=== PATIENT | female | born 1940 | race Caucasian/White ===

== ENCOUNTER 2018-09-11 11:55 | Inpatient (IN) | payer MEDICARE, OTHER ==
[~2018-09-11] VITALS: Ht 157.5 cm; Wt 64.9 kg
[2018-09-11 12:06] VITALS: BP 164/84
[2018-09-11] MEDS ORDERED: NEXIUM40 MG ORAL (12:06)
[2018-09-11] MEDS ORDERED: VITAMIN B122500 MCG PO (12:06)
[2018-09-11] MEDS ORDERED: ASPIR 8181 MG ORAL (12:06)
[2018-09-11] MEDS ORDERED: LIPITOR20 MG ORAL (12:06)
[2018-09-11] MEDS ORDERED: VITAMIN D1000 UNI1 ORAL (12:06)
[2018-09-11] MEDS ORDERED: LEVOTHYROXINE75 MCG ORAL (12:06)
[2018-09-11] MEDS ORDERED: cefTRIAXone 1 GM in NS 55 ML IVPB ONE (12:15)
--- NOTE | 2018-09-11 12:39 | Emergency Room Report ---
History of Present Illness General Chief Complaint: Nosebleed Source: Patient Present Illness HPI Patient presents with complaints of nasal bleeding reports that this morning she Sitting when she started feeling some trickling from the nose she feels that the blood is coming from both nares Denies any headache denies any recent trauma denies any other type of injury that with increased pressure such as sneezing or cough Patient does take an aspirin a day Denies any other recent travel denies any fevers denies any Change in medications Allergies: Coded Allergies: No Known Allergies (Unverified , 09/11/18) Patient History Past Medical History: see triage record Pertinent Family History: none Reviewed Nursing Documentation: PMH: Agreed; PSxH: Agreed Nursing Documentation-PMH Past Medical History: No History, Except For Hx Hypertension: Yes Hx Gastrointestinal Problems: Yes Review of Systems All Other Systems: negative except mentioned in HPI Physical Exam Vital Signs Date Time Temp Pulse Resp B/P (MAP) Pulse Ox O2 Delivery O2 Flow Rate FiO2 09/11/18 11:59 97.5 77 18 164/84 (110) 97 Room Air Sp02 EP Interpretation: reviewed, normal General Appearance: well appearing Head: normocephalic, atraumatic Eyes: bilateral eye PERRL, bilateral eye EOMI ENT: other - Initially appearance of anterior chamber epistaxis from the left side however after intervention the does appear to be, some pooling of blood on the right anterior nare no septal hematomas Neck: supple Respiratory: lungs clear, no respiratory distress, no retraction Cardiovascular #1: regular rate, rhythm Gastrointestinal: soft Genitourinary: no CVA tenderness Musculoskeletal: normal inspection Neurologic: alert, oriented x3 Skin: no rash Lymphatic: no adenopathy Medical Decision Making Diagnostic Impression: Primary Impression: Epistaxis ER Course Multiple differentials and consideration Including but not limited to coagulation pathology, structural pathology Patient's blood work is at baseline levels Initial 5.5 cm packing was placed bilaterally however there appeared to be continued oozing from the right nostril near therefore this was removed And a 7.5 packing was placed the balloon was inflated and appears to have controlled the bleeding much better patient had very minimal oozing noted and this was allowed to Have secondary treatment with increased pressure and placing more air through the syringe which appeared to improve the oozing of blood Patient's airway remains patent Remains hemodynamically stable Given the minimal oozing and bilateral packing ENT specialty was consulted and patient will require further inpatient care Labs Test 09/11/18 12:30 White Blood Count 7.6 K/UL (4.8-10.8) Red Blood Count 3.97 M/UL (4.20-5.40) Hemoglobin 10.9 G/DL (12.0-16.0) Hematocrit 33.0 % (37.0-47.0) Mean Corpuscular Volume 83 FL (80-99) Mean Corpuscular Hemoglobin 27.6 PG (27.0-31.0) Mean Corpuscular Hemoglobin Concent 33.2 G/DL (32.0-36.0) Red Cell Distribution Width 14.8 % (11.6-14.8) Platelet Count 216 K/UL (150-450) Mean Platelet Volume 7.4 FL (6.5-10.1) Neutrophils (%) (Auto) 59.7 % (45.0-75.0) Lymphocytes (%) (Auto) 29.0 % (20.0-45.0) Monocytes (%) (Auto) 6.2 % (1.0-10.0) Eosinophils (%) (Auto) 3.7 % (0.0-3.0) Basophils (%) (Auto) 1.4 % (0.0-2.0) Prothrombin Time 10.9 SEC (9.30-11.50) Prothromb Time International Ratio 1.0 (0.9-1.1) Activated Partial Thromboplast Time 29 SEC (23-33) Sodium Level 141 MMOL/L (136-145) Potassium Level 3.9 MMOL/L (3.5-5.1) Chloride Level 106 MMOL/L (98-107) Carbon Dioxide Level 29 MMOL/L (21-32) Anion Gap 6 mmol/L (5-15) Blood Urea Nitrogen 27 mg/dL (7-18) Creatinine 0.9 MG/DL (0.55-1.30) Estimat Glomerular Filtration Rate mL/min (>60) Glucose Level 112 MG/DL (74-106) Calcium Level 9.1 MG/DL (8.5-10.1) Last Vital Signs Date Time Temp Pulse Resp B/P (MAP) Pulse Ox O2 Delivery O2 Flow Rate FiO2 09/11/18 12:06 97.5 18 164/84 97 Room Air 09/11/18 11:59 77 Status: improved Disposition: ADMITTED INPATIENT Condition: Serious Blue Gayle DO Sep 11, 2018 12:39
--- NOTE | 2018-09-11 12:42 | NUR ---
ED Nurse Note: pt came in from home c/o nosebleed unknown cause since this morning. ermd eval done sl established blood sent to lab ivf and med up infusing.
[2018-09-11 12:43] LABS: BASOPHILS % (AUTO) 1.4 % (0.0-2.0); EOSINOPHILS % (AUTO) 3.7 % (0.0-3.0); HEMOGLOBIN 10.9 G/DL (12.0-16.0); MEAN CORPUSCULAR VOLUME 83 FL (80-99); MONOCYTES % (AUTO) 6.2 % (1.0-10.0); NEUTROPHILS % (AUTO) 59.7 % (45.0-75.0); PLATELET COUNT 216 K/UL (150-450); RED BLOOD COUNT 3.97 M/UL (4.20-5.40); RED CELL DISTRIBUTION WIDTH 14.8 % (11.6-14.8); WHITE BLOOD COUNT 7.6 K/UL (4.8-10.8)
[2018-09-11 12:57] LABS: ANION GAP 6 mmol/L (5-15); BLOOD UREA NITROGEN 27 mg/dL (7-18); CALCIUM 9.1 MG/DL (8.5-10.1); CARBON DIOXIDE 29 MMOL/L (21-32); CHLORIDE 106 MMOL/L (98-107); CREATININE 0.9 MG/DL (0.55-1.30); POTASSIUM 3.9 MMOL/L (3.5-5.1); SODIUM 141 MMOL/L (136-145)
[2018-09-11 14:10] VITALS: BP 155/76
[2018-09-11 15:08] VITALS: BP 152/74
--- NOTE | 2018-09-11 15:11 | NUR ---
ED Nurse Note: Rose Ortiz applied by ermbetsy belongings list done med recon done.
--- NOTE | 2018-09-11 16:00 | NUR ---
NURSE NOTES: Report received from MINOR Kumar. Pt. came on the floor via gurney from ER. In RA. VS stable with T97.2, BP 143/67, RR 20, O2 sat 96. No complaint of pain. Pt. admitted for epistaxis, rhino rocket done at ER. Per ER Nurse balloon should be inflated to put pressure and stop bleeding. quarter sized blood noticed on tissue. Pt. AOx4. Spouse at bedside. Belongings checked with Pt., signed and filed. awake overnight monitor applied. oriented to room and hospital protocols. Pt preferred to stay with own street clothing. Made comfortable on the bed. Bed on lowest position, side rails upx2, brakes engaged. Call light within easy reach.
[2018-09-11] MEDS ORDERED: Acetaminophen 500mg (ES) tab ORAL PRN (16:30)
--- NOTE | 2018-09-11 16:30 | History & Physical ---
History and Physical History & Physicial Patient is seen and examined. Full Dictation completed Sheridan Steiner MD Sep 11, 2018 16:30
--- NOTE | 2018-09-11 17:00 | History and Physical Report ---
DATE OF ADMISSION: 09/11/2018 SOURCE OF INFORMATION: Patient and EMR. HISTORY OF PRESENT ILLNESS: The patient is a 78-year-old Stateless female. She presented with acute onset of the bleeding through the nose on the same day of admission. At the time of evaluation, the patient is status post packing both nose in the ER partially controlled bleeding. Denies any chest pain or shortness of breath. Denies any loss of consciousness. Denies any bruises or bleeding in the other part of the body. PAST MEDICAL HISTORY: Including but not limited to hypertension and hyperlipidemia. PAST SURGICAL HISTORY: Cholecystectomy. ALLERGIES: NKDA. FAMILY HISTORY: Reviewed and noncontributory. CURRENT HOME MEDICATIONS: Including Diovan, atorvastatin. PHYSICAL EXAMINATION: VITAL SIGNS: Blood pressure 160/80, temperature 98.2, pulse oximetry 98% on room air, and pulse rate 72. HEAD AND NECK: Atraumatic and normocephalic. CHEST: Clear to auscultation. HEART: S1, S2. Regular rate and rhythm. ABDOMEN: Soft. No organomegaly. MUSCULOSKELETAL: No gross focal motor deficit. LABORATORY DATA: Dated 09/11/2018 shows WBC 7.6, hemoglobin 10.9, and platelets 216. Sodium 141, potassium 3.9, INR 1. ASSESSMENT: 1. Acute idiopathic epistaxis. 2. Hypertension. 3. Hyperlipidemia. 4. Anemia. 5. GI and DVT prophylaxes. PLAN OF CARE: Given the failure of the complete control of the epistaxis in the ER after the procedure, it is justified the admission to the medical floor. ENT, Dr. Love has been notified for follow-up and recommendation. I would resume the home medications including Diovan. I would hold the aspirin. Sheridan Steiner M.D. DR: ERIC JOB#: [id number] CC:
--- NOTE | 2018-09-11 17:10 | NUR ---
NURSE NOTES: Balloon intact. inflated with 2cc air on R nostril.
[2018-09-11 17:55] LABS: % IRON SATURATION 36 % (15-50); IRON 87 ug/dL (50-175); TOTAL IRON BINDING CAPACITY 239 ug/dL (250-450)
[2018-09-11 18:08] LABS: CHOLESTEROL 131 MG/DL (< 200); FERRITIN 48 NG/ML (8-388); HDL CHOLESTEROL 43 MG/DL (40-60); TRIGLYCERIDES 126 MG/DL (30-150)
--- NOTE | 2018-09-11 18:20 | NUR ---
NURSE NOTES: Left a message to Dr. Love's office.
--- NOTE | 2018-09-11 19:32 | NUR ---
HAND-OFF: Report given to MINOR García. RN to follow up with Dr. Love.
--- NOTE | 2018-09-11 19:49 | NUR ---
NURSE NOTES: Contacted Dr. Love and left a voicemail regarding patient's condition, awaiting call back.
[2018-09-11 20:08] VITALS: BP 140/78
--- NOTE | 2018-09-11 20:54 | NUR ---
NURSE NOTES: Patient's epistaxis has subsided. Rhino rockets are in place and intact. No active bleeding at this time. Vital signs are stable. Instructed patient to elevated HOB and remain in high guzman's to reduce risk of aspiration, patient verbalized understanding. Also notified patient and family members that ENT MD has not called back and will assess the patient as soon as the MD is available; pt verbalized understanding. Will continue to monitor.
--- NOTE | 2018-09-11 21:06 | NUR ---
NURSE NOTES: Spoke to Ivan regarding patient's condition, per Dr. Love, he will attempt to assess the patient the following day. New order noted and will be carried out. Patient denies pain. No s/s of distress. Respiratory even and unlabored. No active bleeding at this time. Rhino rockets are in place. Will continue to monitor.
[2018-09-11] MEDS: Atorvastatin 20mg tab ORAL SCH (22:07)
--- NOTE | 2018-09-12 | NUR ---
NURSE NOTES: Patient is asleep but arousable by voice. No respiratory distress noted. Minimal bleeding at this time. VSS. Will continue to monitor.
[2018-09-12 00:32] VITALS: BP 141/78
[2018-09-12 03:50] VITALS: BP 140/86
--- NOTE | 2018-09-12 03:50 | NUR ---
NURSE NOTES: Patient is awake, alert, oriented, and able to make needs known. Minimal bleeding on left nostril noted. Rhino rockets are still intact, unsaturated. Breathing is unlabored and even. Denies pain at this time. VSS. Will continue to monitor.
[2018-09-12] MEDS ORDERED: Amoxicillin 250mg/5ml susp 100ml ONE (06:00)
--- NOTE | 2018-09-12 06:10 | NUR ---
NURSE NOTES: Patient is asleep, but arousable by voice. Patient's rhino rocket is intact and in place. Minimal bleeding on left nostril. Gauze is semi-saturated. No respiratory distress at this time. Vital signs are stable. Denies pain at this time. Will continue to monitor.
--- NOTE | 2018-09-12 06:15 | NUR ---
NURSE NOTES: Family member is showing increase in agitation regarding ENT MD not able to visit the patient yesterday. RN reassured the family member and as well the patient that the patient's VS are stable and the bleeding has subsided. Patient is denying pain and respiratory is even and unlabored. rehabilitation center manager and primary RN reassured the family member that all possible interventions are being carried out. Called and left voicemail for Dr. Steiner regarding the situation; awaiting call back.
[2018-09-12 06:26] LABS: BASOPHILS % (AUTO) 1.3 % (0.0-2.0); EOSINOPHILS % (AUTO) 2.7 % (0.0-3.0); HEMATOCRIT 32.4 % (37.0-47.0); HEMOGLOBIN 10.6 G/DL (12.0-16.0); LYMPHOCYTES % (AUTO) 32.4 % (20.0-45.0); MEAN CORPUSCULAR VOLUME 84 FL (80-99); MONOCYTES % (AUTO) 8.6 % (1.0-10.0); PLATELET COUNT 228 K/UL (150-450); RED BLOOD COUNT 3.84 M/UL (4.20-5.40); RED CELL DISTRIBUTION WIDTH 13.7 % (11.6-14.8); WHITE BLOOD COUNT 8.7 K/UL (4.8-10.8)
--- NOTE | 2018-09-12 06:45 | NUR ---
CASE MANAGEMENT: INITIAL REVIEW 78 YO F PRESENTED TO ED FROM HOME CC: NOSE BLEED PMHx: HTN. SI:COMPLEX EPISTAXIS T 97.5 HR 77 RR 18 B/P 164/84 SATS 97% ON RA BUN 27 GLU 112 IS: CEFTRIAXONE IV X1 NS BOLUS X1 PATIENT ADMITTED TO TELE 09/11/2018 @ 1918 DCP: PATIENT TO BE DISCHARGED TO HOME ONCE MEDICALLY CLEARED. PLAN OF CARE: ENT EVAL Addendum: 09/12/18 at [address] CM INTERQUAL
[2018-09-12 07:06] LABS: ALANINE AMINOTRANSFERASE 16 U/L (12-78); ALBUMIN 3.5 G/DL (3.4-5.0); ALBUMIN/GLOBULIN RATIO 1.1 (1.0-2.7); ALKALINE PHOSPHATASE 78 U/L (46-116); ANION GAP 8 mmol/L (5-15); ASPARTATE AMINO TRANSFERASE 17 U/L (15-37); BILIRUBIN,TOTAL 0.3 MG/DL (0.2-1.0); BLOOD UREA NITROGEN 28 mg/dL (7-18); CALCIUM 8.8 MG/DL (8.5-10.1); CARBON DIOXIDE 28 MMOL/L (21-32); CHLORIDE 106 MMOL/L (98-107); CREATININE 0.9 MG/DL (0.55-1.30); POTASSIUM 3.6 MMOL/L (3.5-5.1); SODIUM 142 MMOL/L (136-145)
--- NOTE | 2018-09-12 07:17 | NUR ---
NURSE NOTES: Left a voicemail at Dr. Love's office regarding patient and patient's family member's concerns, awaiting call back. Notified Dr. Steiner as well. Per MD, will communicate with ENT MD.
[2018-09-12 08:00] VITALS: BP 134/74
--- NOTE | 2018-09-12 08:03 | NUR ---
NURSE NOTES: pt in bed in low position bed is locked. Pt on groundwater monitoring technician no signs of respiratory or cardiac distress. Pt. AOx4. Call light at bed side next to pt. Nose is packed with rhino rockets. at bedside requesting to see ENT, PCP is aware. Breakfast at bedside. Will continue to monitor and follow plan of care.
--- NOTE | 2018-09-12 08:12 | NUR ---
HAND-OFF: Report given to Jazmín GAXIOLA. Patient is in stable condition. Endorsed plan of care.
[2018-09-12] MEDS: Amoxicillin 250mg/5ml susp 100ml ORAL SCH ×2 (10:02→17:29)
[2018-09-12 12:00] VITALS: BP 136/74
--- NOTE | 2018-09-12 14:12 | General Progress Note ---
Assessment/Plan Status: stable Assessment/Plan: S: When I can go home O: seems comfortable, persistent but minimal bleeding from right Nostril , Son at the bed side. PHYSICAL EXAMINATION: HEAD AND NECK: Atraumatic and normocephalic. CHEST: Clear to auscultation.HEART: S1, S2. Regular rate and rhythm. ABDOMEN: Soft. No organomegaly. MUSCULOSKELETAL: No gross focal motor deficit. Meds: reviewed and reconciled ASSESSMENT: 1. Acute idiopathic epistaxis. 2. Hypertension. 3. Hyperlipidemia. 4. Anemia. 5. GI and DVT prophylaxes. PLAN OF CARE: Pending ENT evaluation D/w ENT. will monitor Residual bleeding from Right nostril Subjective Allergies: Coded Allergies: No Known Allergies (Unverified , 09/11/18) Objective Last 24 Hour Vital Signs Date Time Temp Pulse Resp B/P (MAP) Pulse Ox O2 Delivery O2 Flow Rate FiO2 09/12/18 12:00 97.7 83 20 136/74 (94) 95 09/12/18 11:42 78 09/12/18 09:19 83 134/74 09/12/18 08:45 Room Air 09/12/18 08:00 97.6 83 18 134/74 (94) 97 09/12/18 06:00 86 09/12/18 03:51 82 09/12/18 03:50 98.0 80 20 140/86 (104) 96 09/12/18 00:32 98.0 84 20 141/78 (99) 96 09/11/18 23:27 77 09/11/18 21:00 Room Air 09/11/18 20:08 98.0 84 20 140/78 (98) 09/11/18 19:10 82 09/11/18 17:04 91 139/84 09/11/18 16:33 Room Air 09/11/18 16:00 76 09/11/18 15:21 97.5 20 152/74 96 Room Air 09/11/18 15:08 97.5 20 152/74 96 Room Air 09/11/18 14:10 97.5 17 155/76 95 Room Air Intake and Output 09/11/18 09/12/18 19:00 07:00 Intake Total 120 ml Output Total 0 ml Balance 0 ml 120 ml Intake Oral 120 ml Output Urine Total 0 ml Laboratory Tests 09/11/18 17:15: Hemoglobin A1c 5.8, Iron Level 87, Total Iron Binding Capacity 239L, Percent Iron Saturation 36, Unsaturated Iron Binding 152, Ferritin 48, Triglycerides Level 126, Cholesterol Level 131, LDL Cholesterol 67, HDL Cholesterol 43, Cholesterol/HDL Ratio 3.0L, Thyroid Stimulating Hormone (TSH) 1.516 09/12/18 05:35: White Blood Count 8.7, Red Blood Count 3.84L, Hemoglobin 10.6L, Hematocrit 32.4L , Mean Corpuscular Volume 84, Mean Corpuscular Hemoglobin 27.7, Mean Corpuscular Hemoglobin Concent 32.8, Red Cell Distribution Width 13.7, Platelet Count 228, Mean Platelet Volume 8.2, Neutrophils (%) (Auto) 55.0, Lymphocytes (% ) (Auto) 32.4, Monocytes (%) (Auto) 8.6, Eosinophils (%) (Auto) 2.7, Basophils ( %) (Auto) 1.3, Sodium Level 142, Potassium Level 3.6, Chloride Level 106, Carbon Dioxide Level 28, Anion Gap 8, Blood Urea Nitrogen 28H, Creatinine 0.9, Estimat Glomerular Filtration Rate , Glucose Level 107H, Calcium Level 8.8, Total Bilirubin 0.3, Aspartate Amino Transf (AST/SGOT) 17, Alanine Aminotransferase (ALT/SGPT) 16, Alkaline Phosphatase 78, Total Protein 6.8, Albumin 3.5, Globulin 3.3, Albumin/Globulin Ratio 1.1 Height (Feet): 5 Height (Inches): 2.00 Weight (Pounds): 143 Sheridan Steiner MD Sep 12, 2018 14:12
[2018-09-12 16:00] VITALS: BP 139/74
--- NOTE | 2018-09-12 16:33 | Consultation ---
History of Present Illness General Date patient seen: Sep 12, 2018 Time patient seen: 15:50 Chief Complaint: Nosebleed Referring physician: Inna Steiner Reason for Consultation: NOse packed in ER yesterday-pt admitted Present Illness HPI as above Allergies: Coded Allergies: No Known Allergies (Unverified , 09/11/18) Medication History Scheduled Aspirin* (Aspir 81*), 81 MG ORAL DAILY, (Reported) Atorvastatin Calcium* (Lipitor*), 20 MG ORAL BEDTIME, (Reported) Cholecalciferol (Vitamin D3)* (Vitamin D*), Unknown Dose ORAL DAILY, (Reported) Cyanocobalamin (Vitamin B-12) (Vitamin B12), Unknown Dose PO DAILY, (Reported) Esomeprazole Magnesium (Nexium), 40 MG ORAL DAILY, (Reported) Levothyroxine Sodium* (Levothyroxine Sodium*), 75 MCG ORAL DAILY, (Reported) Patient History Healthcare decision maker French Whelan Resuscitation status Full Code Advanced Directive on File Physical Exam General Appearance: WD/WN HEENT: other - Rhino Rocket in either nostril Last 24 Hour Vital Signs Date Time Temp Pulse Resp B/P (MAP) Pulse Ox O2 Delivery O2 Flow Rate FiO2 09/12/18 16:00 82 09/12/18 16:00 97.7 82 18 139/74 (95) 96 09/12/18 12:00 97.7 83 20 136/74 (94) 95 09/12/18 11:42 78 09/12/18 09:19 83 134/74 09/12/18 08:45 Room Air 09/12/18 08:00 97.6 83 18 134/74 (94) 97 09/12/18 06:00 86 09/12/18 03:51 82 09/12/18 03:50 98.0 80 20 140/86 (104) 96 09/12/18 00:32 98.0 84 20 141/78 (99) 96 09/11/18 23:27 77 09/11/18 21:00 Room Air 09/11/18 20:08 98.0 84 20 140/78 (98) 09/11/18 19:10 82 09/11/18 17:04 91 139/84 09/11/18 16:33 Room Air Intake and Output 09/11/18 09/12/18 19:00 07:00 Intake Total 120 ml Output Total 0 ml Balance 0 ml 120 ml Intake Oral 120 ml Output Urine Total 0 ml Laboratory Tests Test 09/11/18 17:15 09/12/18 05:35 Hemoglobin A1c 5.8 % (4.3-6.0) Iron Level 87 ug/dL (50-175) Total Iron Binding Capacity 239 ug/dL (250-450) L Percent Iron Saturation 36 % (15-50) Unsaturated Iron Binding 152 ug/dL (112-346) Ferritin 48 NG/ML (8-388) Triglycerides Level 126 MG/DL (30-150) Cholesterol Level 131 MG/DL (< 200) LDL Cholesterol 67 mg/dL (<100) HDL Cholesterol 43 MG/DL (40-60) Cholesterol/HDL Ratio 3.0 (3.3-4.4) L Thyroid Stimulating Hormone (TSH) 1.516 uiU/mL (0.358-3.740) White Blood Count 8.7 K/UL (4.8-10.8) Red Blood Count 3.84 M/UL (4.20-5.40) L Hemoglobin 10.6 G/DL (12.0-16.0) L Hematocrit 32.4 % (37.0-47.0) L Mean Corpuscular Volume 84 FL (80-99) Mean Corpuscular Hemoglobin 27.7 PG (27.0-31.0) Mean Corpuscular Hemoglobin Concent 32.8 G/DL (32.0-36.0) Red Cell Distribution Width 13.7 % (11.6-14.8) Platelet Count 228 K/UL (150-450) Mean Platelet Volume 8.2 FL (6.5-10.1) Neutrophils (%) (Auto) 55.0 % (45.0-75.0) Lymphocytes (%) (Auto) 32.4 % (20.0-45.0) Monocytes (%) (Auto) 8.6 % (1.0-10.0) Eosinophils (%) (Auto) 2.7 % (0.0-3.0) Basophils (%) (Auto) 1.3 % (0.0-2.0) Sodium Level 142 MMOL/L (136-145) Potassium Level 3.6 MMOL/L (3.5-5.1) Chloride Level 106 MMOL/L (98-107) Carbon Dioxide Level 28 MMOL/L (21-32) Anion Gap 8 mmol/L (5-15) Blood Urea Nitrogen 28 mg/dL (7-18) H Creatinine 0.9 MG/DL (0.55-1.30) Estimat Glomerular Filtration Rate mL/min (>60) Glucose Level 107 MG/DL (74-106) H Calcium Level 8.8 MG/DL (8.5-10.1) Total Bilirubin 0.3 MG/DL (0.2-1.0) Aspartate Amino Transf (AST/SGOT) 17 U/L (15-37) Alanine Aminotransferase (ALT/SGPT) 16 U/L (12-78) Alkaline Phosphatase 78 U/L (46-116) Total Protein 6.8 G/DL (6.4-8.2) Albumin 3.5 G/DL (3.4-5.0) Globulin 3.3 g/dL Albumin/Globulin Ratio 1.1 (1.0-2.7) Height (Feet): 5 Height (Inches): 2.00 Weight (Pounds): 143 Medications Current Medications Medications (Trade) Dose Ordered Sig/Juanita Route PRN Reason Start Time Stop Time Status Last Admin Dose Admin Acetaminophen (Tylenol) 500 mg Q4H PRN ORAL Mild Pain/Temp > 100.5 09/11/18 16:30 10/11/18 16:29 Amlodipine Besylate (Norvasc) 5 mg DAILY ORAL 09/12/18 09:00 10/12/18 08:59 09/12/18 09:19 Amoxicillin (Amoxil) 500 mg BID ORAL 09/12/18 09:00 09/16/18 18:01 09/12/18 10:02 Atorvastatin Calcium (Lipitor) 20 mg BEDTIME ORAL 09/11/18 21:00 10/11/18 20:59 09/11/18 22:07 Levothyroxine Sodium (Synthroid) 75 mcg ACBREAKFAST ORAL 09/12/18 06:30 10/12/18 06:29 09/12/18 05:45 Pantoprazole (Protonix) 40 mg DAILY ORAL 09/12/18 09:00 10/12/18 08:59 09/12/18 09:18 Assessment/Plan Status: stable Status Narrative Epistaxis controlled Assessment/Plan: I have removed 3 cc of air from both Rhino Rockets-40 minutes later no bleeding. I will come by tomorrow and remove. If no bleeding after 30 minutes, may go home and follow up with me in 7-10 days in my office. MIPS Medication Reconciliation Is this a Psycho/Diag encounte: No Depression Does this Patient have Dementi: No Enrike Love MD Sep 12, 2018 16:33
--- NOTE | 2018-09-12 19:29 | NUR ---
NURSE NOTES: Report received from Janet RN and Justus RN. Pt is resting in bed in stable condition. Pt is awake, alert, and oriented x4. Pt is on room air and breathing is even and unlabored. No acute distress noted. Rhino rockets noted to be in place in bilateral nares. No active bleeding noted at this time. IV site is R Hand #20g and is asymptomatic, patent, and intact. Bed is in lowest position with brake engaged, side rails up x3, and bed alarm. Call light and side table placed within reach. is at bedside. Will continue to monitor.
[2018-09-12 20:00] VITALS: BP 125/71
[2018-09-12] MEDS: Atorvastatin 20mg tab ORAL SCH (20:19)
[2018-09-13 04:00] VITALS: BP 153/76
--- NOTE | 2018-09-13 07:01 | NUR ---
NURSE NOTES: Observed pt in bed in low position, bed alarm on, HOB at high fowlers, in room and both sleeping, base line is Ox4 calm and cooperative, rhinal plugs in place, Md Love seen the patient yesterday, IV intact and asymptomatic patent, Pt on room air, possible discharge today depending on Md Love evaluation, no s/s of distress or sob noted.
--- NOTE | 2018-09-13 07:17 | NUR ---
HAND-OFF: Report given to Ann Estes RN. Pt is resting in bed in stable condition. No acute distress noted. Endorsed plan of care.
[2018-09-13 08:00] VITALS: BP 153/84
[2018-09-13] MEDS: Amoxicillin 250mg/5ml susp 100ml ORAL SCH (08:52)
--- NOTE | 2018-09-13 11:54 | General Progress Note ---
Progress Note Progress Note S. pt seen, no bleeding now for 3 days. O: No bleeding. RhinoRockets removed VS stable. I returned 30 minutes later, still no bleeding. Clot in right nostril. A:Epistaxis controlled at this time. P: OK to discharge per ENT. Pt. to f/u with PMD next week. Antibiotic ointment placed in nose BID-discussed with son while pt., her and nurse present. Enrike Love MD Sep 13, 2018 11:54
[2018-09-13 12:00] VITALS: BP 121/74
--- NOTE | 2018-09-13 13:39 | NUR ---
NURSE NOTES: Discharge order in, pt family made aware, IV and ID band removed, after care plan and med recon give, pt dressed, Vitals WnL, pt Ox4, denies pain, no s/s of distress or sob noted. pt was given special instructions not to touch nasal scab for 7-10 days and to follow up with PCP. monitor car operator removed. Pt ambulated with assist to car and left the unit and hospital.
--- NOTE | 2018-09-15 09:18 | Discharge Summary ---
Discharge Summary Discharge Summary _ DATE OF ADMISSION: 09/11/2018 DATE OF DISCHARGE: 09/13/2018 DISCHARGED BY: Dr. Steiner REASON FOR ADMISSION: 78 years old female with past medical history of hypertension, hyperlipidemia, presented with acute onset of nasal bleeding. Patient was stating that she was sitting and started to feel trickling coming from the both nares. Patient received packing in the emergency department , which partially controlled bleeding. Patient denied chest pain or shortness of breath. She denied loss of consciousness , blackouts. She denies headache or recent trauma. She denied any type of injury that may increase pressure like sneezing or cough. She denied bruises or bleeding in the other part of the of the body. Patient was taking aspirin at home. Upon evaluation blood pressure was elevated 164/84. Hemoglobin 10.9 , hematocrit 33. Stable electrolytes . Patient had minimal oozing. Airway remained patent. Patient remained hemodynamically stable . ENT specialist was consulted. Patient was admitted, given the minimal oozing and bilateral packing. CONSULTANTS: ENT specialist Dr. Love [facility] COURSE: Patient admitted to medical surgical floor. ENT specialist was consulted. Home medication were resumed. Aspirin was stopped . Blood pressure was managed with amlodipine, stabilized. GI prophylaxis provided. ENT specialist seen and evaluated patient. He removed 3 cc of air from both Rhino Rockets and 40 minutes later there was no bleeding. ENT specialist followed-up on the next day and there was no bleeding . Rhino Rocket's were removed . No further bleeding. Vital signs remained stable. Noted clot in the right nostril. Epistaxis was controlled. ENT specialist cleared patient for discharge . He recommended antibiotic ointment in the nose twice daily , which was discussed with the patient's son. Hemoglobin and hematocrit were closely monitored and remained stable. Prior to discharge hemoglobin 10.6, hematocrit 32.4. Patient was stable for discharge home. FINAL DIAGNOSES: Acute idiopathic epistaxis Hypertension Hyperlipidemia Anemia DISCHARGE MEDICATIONS: See Medication Reconciliation list. DISCHARGE INSTRUCTIONS: Patient was discharged home . Follow up with primary care provider in one week. I have been assigned to dictate discharge summary for this account. I was not involved in the patient's management. Alanis Shine NP Sep 15, 2018 09:18
== END 2018-09-13 13:42 | disposition home or self-care (01) | DRG 151 ==
LOC: EMR 13:00 → 2E 14:15 → EDBEDREQ 14:35 → 2E 15:12
PROC: 2Y41X5Z Packing of Nasal Region using Packing Material (ICD-10-PCS; principal; 2018-09-11)
DX: R04.0 Epistaxis (principal); D64.9 Anemia, unspecified; I10 Essential (primary) hypertension; E78.5 Hyperlipidemia, unspecified; Z90.49 Acquired absence of other specified parts of digestive tract; Z79.82 Long term (current) use of aspirin
CPT/HCPCS: 36415; 80048; 80053; 80061; 82728; 83036; 83540; 83550; 84443; 85025; 85610; 85730; 93005; 96365; 99285